=== PATIENT | male | born 1950 | race Two or more races ===

== ENCOUNTER 2017-07-02 14:55 | Inpatient (IN) | payer MEDICARE ==
[~2017-07-02] VITALS: Ht 182.9 cm; Wt 96.2 kg
--- NOTE | 2017-07-02 18:25 | NUR ---
MS RN NOTES PATIENT BROUGHT IN VIA GURNEY FROM [facility]. PATIENT IS A/O X4, AMBULATORY. MADE COMFORTABLE IN BED. IVC IN RIGHT AC G20 PATENT AND INTACT, FLUSHES WELL. VS TAKEN AND RECORDED, SATING 96% IN RA, NO SOB. PATIENT WILL BE ADMITTED FOR PNA, NOTIFIED DR. VELEZ. CALL LIGHT WITHIN REACH. WILL ENDORSE TO SLITTER CUT OFF OPERATOR RN FOR ROSEANN.
[2017-07-02 18:34] VITALS: BP 154/104
--- NOTE | 2017-07-02 18:42 | NUR ---
CALLED DR VELEZ TO VERIFY PT TELE STATUS. STATES OK TO KEEP ON MED SURG. AND ORDERED ATIVAN 2MG IV Q6H AGITATION AND WITHDRAWAL SYMPTOMS. ORDERS PLACED. NAVIN SUBSTATION INSPECTOR, NOTIFIED AND WILL CALL ADMITTING TO CHANGE STATUS TO MED SURGE.
[2017-07-02] MEDS ORDERED: IV NS 0.9% 1,000 ML IV PRN (18:46)
[2017-07-02] MEDS ORDERED: ZOLPIDEM TARTRATE 5 MG TABLET PO PRN (19:00)
[2017-07-02] MEDS ORDERED: MAGNESIUM HYDROXIDE 30 ML UDC PO PRN (19:00)
[2017-07-02] MEDS ORDERED: ENOXAPARIN SODIUM 40 MG/0.4 ML DISP.SYRIN SQ SCH (19:00)
[2017-07-02] MEDS ORDERED: LORAZEPAM 1 MG TABLET PO PRN (19:00)
[2017-07-02] MEDS ORDERED: MAG HYDROX/AL HYDROX/SIMETH 30 ML UDC PO PRN (19:00)
[2017-07-02] MEDS ORDERED: ONDANSETRON HCL/PF 4 MG/2 ML VIAL IVP PRN (19:00)
[2017-07-02] MEDS ORDERED: ACETAMINOPHEN 325 MG TABLET PO PRN (19:00)
[2017-07-02] MEDS ORDERED: Z GUARD REMEDY 2 OZ OINT TP PRN (19:00)
--- NOTE | 2017-07-02 19:30 | NUR ---
RN NOTE , RECEIVED THE PT IN BED AWAKE AND ALERT, ANXIOUS, REQUESTING PAIN MEDICATION AND ATIVAN, BREATHING EVENLY. NO SOB. NO COUGH. ABLE TO PROVIDE MEDICAL HX, NEEDS ATTENDED. CALL LIGHT WITHIN REACH .WILL CONT TO MONITOR AND WILL F/U W. 'S ORDERS.
[2017-07-02] MEDS ORDERED: ENOXAPARIN SODIUM 40 MG/0.4 ML DISP.SYRIN SQ ONE (19:40)
[2017-07-02] MEDS ORDERED: LORAZEPAM 1 MG TABLET ONE (19:41)
[2017-07-02] MEDS ORDERED: HYDROCODONE/APAP 5/325MG 1 EACH TABLET ONE (19:42)
[2017-07-02] MEDS: HYDROCODONE/APAP 5/325MG 1 EACH TABLET PO PRN (19:45)
--- NOTE | 2017-07-02 19:45 | NUR ---
NORCO GIVEN FOR C/O L UPPER ABD PAIN. WILL CONT TO MONITOR
[2017-07-02] MEDS ORDERED: LORAZEPAM INJ 2 MG/ML VIAL ONE (19:48)
[2017-07-02] MEDS: LORAZEPAM INJ 2 MG/ML VIAL IV PRN (19:50)
--- NOTE | 2017-07-02 19:50 | NUR ---
ATIVAN INJ GIVEN PER PT'S REQUEST FOR C/O ANXIETY. WILL CONT TO MONITOR ,
[2017-07-02 20:00] VITALS: BP 153/99
[2017-07-02 20:20] VITALS: BP 153/99
[2017-07-02 20:38] LABS: BASOPHILS % (AUTO) 0.4 % (0.0-2.0); EOSINOPHILS # (AUTO) 0.3 /CMM (0.0-0.7); EOSINOPHILS % (AUTO) 2.7 % (0.0-6.0); HEMATOCRIT 41 % (39-51); HEMOGLOBIN 13.9 g/dL (13.5-17.5); LYMPHOCYTES # (AUTO) 0.8 /CMM (0.8-4.8); LYMPHOCYTES % (AUTO) 8.3 % (20.0-44.0); MEAN CORPUSCULAR HEMOGLOBIN 30 PG (26.0-33.0); MEAN CORPUSCULAR HGB CONC 34 g/dl (31.0-36.0); MEAN CORPUSCULAR VOLUME 88 fL (80-96); MONOCYTES # (AUTO) 0.6 /CMM (0.1-1.30); MONOCYTES % (AUTO) 5.9 % (2.0-12.0); NEUTROPHILS # (AUTO) 8.1 /CMM (1.8-8.9); NEUTROPHILS % (AUTO) 82.7 % (43.0-81.0); PLATELET COUNT (AUTO) 250 /CMM (150-450); RDW COEFFICIENT OF VARIATION 14.3 (11.5-15.0); RED BLOOD CELL COUNT(AUTO) 4.63 MIL/uL (4.5-6.0); WHITE BLOOD COUNT (AUTO) 9.9 K/uL (4.3-11.0)
[2017-07-02 21:01] LABS: BILIRUBIN,DIRECT 0.2 mg/dL (0.0-0.2); BILIRUBIN,TOTAL 0.9 mg/dL (0.2-1.0); CALCIUM, SERUM 8.4 mg/dL (8.5-10.1); CREATININE 0.8 mg/dL (0.6-1.3); POTASSIUM 3.7 mmol/L (3.5-5.1)
[2017-07-02 21:02] LABS: ALBUMIN 2.7 g/dL (3.4-5.0); TOTAL PROTEIN, SERUM 6.6 g/dL (6.4-8.2)
--- NOTE | 2017-07-03 06:43 | NUR ---
PT IN BED SLEEPING, BREATHING EVENLY. NO SOB, NO COUGH, NO ACUTE EVENT DURING THE NIGHT. NEEDS ATTENDED .CALL LIGHT WITHIN REACH. WILL CONT TO MONITOR AND WILL ENDORSE TO AM SHIFT FOR ROSEANN.
--- NOTE | 2017-07-03 07:25 | NUR ---
MS RN OPENING NOTES RECEIVED PT FROM NIGHTSHIFT NURSE IN STABLE CONDITION. PT IS A/O X4. NO SOB OR SIGNS OF DISTRESS NOTED. BREATHING IS EVEN AND UNLABORED. PT IS ON RA AND SATING WELL. HE DENIES PAIN AT THIS TIME. IV NOTED TO BE PATENT AND INTACT. BED IN LOW LOCKED POSITION, SIDE RAILS UP X2, CALL LIGHT WITHIN REACH. WILL CONTINUE TO MONITOR
[2017-07-03 07:48] LABS: BASOPHILS % (AUTO) 0.5 % (0.0-2.0); EOSINOPHILS # (AUTO) 0.6 /CMM (0.0-0.7); EOSINOPHILS % (AUTO) 6.9 % (0.0-6.0); HEMATOCRIT 44 % (39-51); HEMOGLOBIN 14.9 g/dL (13.5-17.5); LYMPHOCYTES # (AUTO) 1.2 /CMM (0.8-4.8); LYMPHOCYTES % (AUTO) 14.1 % (20.0-44.0); MEAN CORPUSCULAR HEMOGLOBIN 30 PG (26.0-33.0); MEAN CORPUSCULAR HGB CONC 34 g/dl (31.0-36.0); MEAN CORPUSCULAR VOLUME 88 fL (80-96); MONOCYTES # (AUTO) 0.6 /CMM (0.1-1.30); MONOCYTES % (AUTO) 7.5 % (2.0-12.0); NEUTROPHILS # (AUTO) 6.1 /CMM (1.8-8.9); PLATELET COUNT (AUTO) 286 /CMM (150-450); RDW COEFFICIENT OF VARIATION 14.6 (11.5-15.0); RED BLOOD CELL COUNT(AUTO) 4.94 MIL/uL (4.5-6.0); WHITE BLOOD COUNT (AUTO) 8.6 K/uL (4.3-11.0)
[2017-07-03 08:00] VITALS: BP 156/90
[2017-07-03 08:25] LABS: CALCIUM, SERUM 8.8 mg/dL (8.5-10.1); CREATININE 0.8 mg/dL (0.6-1.3); MAGNESIUM 1.7 mg/dL (1.8-2.4); PHOSPHORUS 3.3 mg/dL (2.5-4.9)
[2017-07-03] MEDS ORDERED: CEFTRIAXONE 1 G in IV D5W 50 ML IV SCH (08:25)
[2017-07-03] MEDS ORDERED: LISI-603 PO (08:49)
[2017-07-03] MEDS ORDERED: THIAMINE HCL 100 MG TABLET PO SCH (09:00)
[2017-07-03] MEDS ORDERED: FOLIC ACID 1 MG TABLET PO SCH (09:00)
[2017-07-03] MEDS: HYDROCODONE/APAP 5/325MG 1 EACH TABLET PO PRN (09:16)
[2017-07-03] MEDS: LORAZEPAM INJ 2 MG/ML VIAL IV PRN (09:17)
[2017-07-03] MEDS: Magnesium 1GM/D5W 100ML PREMIX 100 ML IV SCH ×2 (11:12→12:12)
--- NOTE | 2017-07-03 12:26 | NUR ---
MS RN NOTES PT STATED THAT HE WANTED TO LEAVE AMA DESPITE HIS MEDICAL CONDITION. PER PT "I WOULD LIKE TO GO TO MY REHAB FACILITY AND I HAVE OTHER THINGS TO DO". IT WAS STRESSED TO THE PT THAT OUTDOOR STUDIES PROFESSOR CAN ARRANGE REHAB POST DISCHARGE AND THAT IT IS HIGHLY ADVISED TO GET TREATED AND MEDICALLY CLEARED BEFORE LEAVING. PT PERSISTED TO LEAVE WITHOUT EXIT CARE. MD AWARE AND ALSO STRESSED THAT PT NEEDED TO STAY TO BE TREATED. HE ALSO REUSED IV MG INFUSION. RISKS AND BENEFITS WERE DISCUSSED WITH PT. HE SIGNED AMA FORM AND WAS ESCORTED FROM FACILITY BY EXERCISE INSTRUCTOR. IV SUCCESSFULLY REMOVED. PT LEFT WITH ALL BELONGINGS
--- NOTE | 2017-07-03 14:09 | NUR ---
Social service consult requested by ANDREA Pineda for homelessness. Pt. is a 67 year old male who was admitted to [facility] for pneumonia. SW went to meet with pt. bedside, however SW was informed that pt. left AMA this AM.
--- NOTE | 2017-07-03 16:05 | NUR ---
INCIDENT REPORT COMPLETED: [id number].
== END 2017-07-03 12:30 | disposition left against medical advice (07) | DRG 195 ==
LOC: TELE2 18:07 → MEDSG2 18:42
PROVIDERS: ADMIT Family Medicine; ATTEND Family Medicine
DX: J15.9 Unspecified bacterial pneumonia (principal); F10.129 Alcohol abuse with intoxication, unspecified; F17.200 Nicotine dependence, unspecified, uncomplicated
CPT/HCPCS: 36415; 80048-TC; 80076-TC; 83735-TC; 84100-TC; 85025-TC; 87081-TC; J0696; J1650; J2060; J7030; J7060; Z7610

== ENCOUNTER 2017-07-03 18:43 | Inpatient (IN) | payer MEDICARE ==
[~2017-07-03] VITALS: Ht 182.9 cm; Wt 93.0 kg
[~2017-07-03 18:43] MED LIST: LISI-603 PO
[2017-07-03] MEDS ORDERED: LORAZEPAM INJ 2 MG/ML VIAL IV STA (20:07)
[2017-07-03] MEDS ORDERED: LORAZEPAM INJ 2 MG/ML VIAL ONE (20:18)
[2017-07-03 20:46] LABS: BASOPHILS # (AUTO) 0.2 /CMM (0.0-0.2); BASOPHILS % (AUTO) 1.8 % (0.0-2.0); EOSINOPHILS # (AUTO) 0.4 /CMM (0.0-0.7); EOSINOPHILS % (AUTO) 4.5 % (0.0-6.0); HEMATOCRIT 44 % (39-51); HEMOGLOBIN 14.5 g/dL (13.5-17.5); LYMPHOCYTES # (AUTO) 1.5 /CMM (0.8-4.8); LYMPHOCYTES % (AUTO) 15.4 % (20.0-44.0); MEAN CORPUSCULAR HEMOGLOBIN 29 PG (26.0-33.0); MEAN CORPUSCULAR HGB CONC 33 g/dl (31.0-36.0); MEAN CORPUSCULAR VOLUME 87 fL (80-96); MONOCYTES # (AUTO) 0.6 /CMM (0.1-1.30); MONOCYTES % (AUTO) 6.5 % (2.0-12.0); NEUTROPHILS % (AUTO) 71.8 % (43.0-81.0); PLATELET COUNT (AUTO) 193 /CMM (150-450); RDW COEFFICIENT OF VARIATION 13.3 (11.5-15.0); RED BLOOD CELL COUNT(AUTO) 5.06 MIL/uL (4.5-6.0); WHITE BLOOD COUNT (AUTO) 9.7 K/uL (4.3-11.0)
[2017-07-03 20:55] LABS: CALCIUM, SERUM 8.6 mg/dL (8.5-10.1); CARBON DIOXIDE 25 mmol/L (21-32); CHLORIDE 103 mmol/L (98-107); CREATININE 0.8 mg/dL (0.6-1.3); GLUCOSE 97 mg/dL (74-106); POTASSIUM 3.3 mmol/L (3.5-5.1); SODIUM SERUM 139 mmol/L (136-145); UREA NITROGEN, BLOOD 6 mg/dL (7-18)
[2017-07-03 21:06] LABS: ALANINE AMINOTRANSFERASE 13 U/L (12-78); ALBUMIN 2.8 g/dL (3.4-5.0); ALKALINE PHOSPHATASE 98 U/L (46-116); ASPARTATE AMINOTRANSFERASE 23 U/L (15-37); BILIRUBIN,DIRECT 0.1 mg/dL (0.0-0.2); BILIRUBIN,TOTAL 0.4 mg/dL (0.2-1.0); LIPASE 91 U/L (73-393); TOTAL PROTEIN, SERUM 6.9 g/dL (6.4-8.2)
[2017-07-03 21:08] LABS: TROPONIN I < 0.017 ng/mL (0.00-0.056)
[2017-07-03] MEDS ORDERED: MAG HYDROX/AL HYDROX/SIMETH 30 ML UDC PO PRN (21:30)
[2017-07-03] MEDS ORDERED: CEFTRIAXONE 1 G in IV D5W 50 ML IV SCH (21:30)
[2017-07-03] MEDS ORDERED: LORAZEPAM 1 MG TABLET PO PRN (21:30)
[2017-07-03] MEDS ORDERED: ENOXAPARIN SODIUM 40 MG/0.4 ML DISP.SYRIN SQ SCH (21:30)
[2017-07-03] MEDS ORDERED: Z GUARD REMEDY 2 OZ OINT TP PRN (21:30)
[2017-07-03] MEDS ORDERED: MAGNESIUM HYDROXIDE 30 ML UDC PO PRN (21:30)
[2017-07-03] MEDS ORDERED: ACETAMINOPHEN 325 MG TABLET PO PRN (21:30)
[2017-07-03] MEDS ORDERED: IV NS 0.9% 1,000 ML IV SCH (21:30)
--- NOTE | 2017-07-03 21:34 | NUR ---
205-2 IN 1 HOUR
[2017-07-03] MEDS ORDERED: IBUPROFEN 400 MG TABLET PO STA (21:36)
--- NOTE | 2017-07-03 22:00 | NUR ---
"AMA YESTERDAY AFTER DX OF PNA; BACK FOR SOB", NAD NOTED, RESP EVEN AND UNLABORED, WAITING FOR MD SIMMONS.
[2017-07-03] MEDS ORDERED: IBUPROFEN 400 MG TABLET ONE (22:11)
[2017-07-03] MEDS ORDERED: ACETAMINOPHEN 325 MG TABLET PO STA (22:14)
--- NOTE | 2017-07-03 23:43 | NUR ---
REPORT REC'D FROM GEORGE NINA FOR ROSEANN. PT WAS ASKED TO LIE BACK IN BED AND PLACED ON THE MONITOR AND CONTINUOUS PULSE OX. PT'S TENNIS SHOES ARE ON THE BACK OF THE BED AND SUITCASE IS BESIDE THE BED.
--- NOTE | 2017-07-03 23:54 | NUR ---
MS2/RN RECEIVE PATIENT FROM E.R. VIA WHEELCHAIR. PATIENT IS AWAKE, ALERT, ORIENTED, C/O PAIN IN CHEST WALL 02/02, WILL MEDICATED, MADE COMFORTABLE IN BED, TAUGHT THE USE OF CALL LIGHT AND PLACED AT BEDSIDE WITHIN REACH. WILL MONITOR.
[2017-07-04] MEDS ORDERED: HYDROCODONE/APAP 5/325MG 1 EACH TABLET ONE ×2 (00:18→05:08)
[2017-07-04] MEDS ORDERED: ENOXAPARIN SODIUM 40 MG/0.4 ML DISP.SYRIN SQ ONE (00:18)
[2017-07-04] MEDS: HYDROCODONE/APAP 5/325MG 1 EACH TABLET PO PRN ×5 (00:25→19:56)
--- NOTE | 2017-07-04 00:25 | NUR ---
MS2/RN MEDICATED WITH NORCO 5/325, ADMISSION DONE PER PROTOCOL, PATIENT WAS NOT COOPERATIVE ENOUGH, NOT ANSWERING SOME OF MY ADMISSION QUESTIONS, REFUSED SKIN ASSESSMENT. WILL CONTINUE TO MONITOR.
[2017-07-04 01:00] VITALS: BP 157/104
--- NOTE | 2017-07-04 02:00 | NUR ---
MS2/RN PATIENT IS SLEEPING AT THIS TIME, EASILY AROUSABLE, APPEAR COMFORTABLE, NO DISTRESS NOTED, CALL LIGHT IN REACH. WILL CONTINUE TO MONITOR.
[2017-07-04] MEDS ORDERED: CEFTRIAXONE 1 G VIAL ONE (02:41)
--- NOTE | 2017-07-04 03:31 | NUR ---
MS2/RN ROCEPHIN WAS GIVEN LATE FOR IT WAS NOT AVAILABLE IN [facility] AND IN HUB LEAD'S OFFICE. MEDICATION WAS TAKEN FROM EMILIA.
--- NOTE | 2017-07-04 07:01 | NUR ---
MS2/RN PATIENT IS SLEEPING AT THIS TIME, AROUSABLE, NO DISTRESS NOTED, ALL NEEDS ATTENDED AT THIS TIME. WILL CONTINUE TO MONITOR.
[2017-07-04 08:00] VITALS: BP 161/92
--- NOTE | 2017-07-04 08:10 | NUR ---
MS RN: INITIAL NOTE RECEIVED PT A/OX3. ON MS. BRP. NO DISTRESS NOTED. NO SOB NOTED. NO PAIN NOTED. AMBULATORY. ON REGULAR DIET. REFUSED SKIN ASSESSMENT. NS AT 75ML/HR RUNNING ON R HAND #20. SITE CLEAR AND PATENT. RESTING COMFORTABLY IN BED. CALL LIGHT WITHIN REACH.
[2017-07-04 08:52] LABS: BASOPHILS % (AUTO) 0.4 % (0.0-2.0); EOSINOPHILS # (AUTO) 0.5 /CMM (0.0-0.7); EOSINOPHILS % (AUTO) 7.6 % (0.0-6.0); HEMATOCRIT 42 % (39-51); HEMOGLOBIN 14.3 g/dL (13.5-17.5); LYMPHOCYTES # (AUTO) 1.1 /CMM (0.8-4.8); LYMPHOCYTES % (AUTO) 18.3 % (20.0-44.0); MEAN CORPUSCULAR HEMOGLOBIN 30 PG (26.0-33.0); MEAN CORPUSCULAR HGB CONC 34 g/dl (31.0-36.0); MEAN CORPUSCULAR VOLUME 89 fL (80-96); MONOCYTES # (AUTO) 0.5 /CMM (0.1-1.30); MONOCYTES % (AUTO) 8.1 % (2.0-12.0); NEUTROPHILS # (AUTO) 4.1 /CMM (1.8-8.9); NEUTROPHILS % (AUTO) 65.6 % (43.0-81.0); PLATELET COUNT (AUTO) 251 /CMM (150-450); RDW COEFFICIENT OF VARIATION 14.6 (11.5-15.0); RED BLOOD CELL COUNT(AUTO) 4.74 MIL/uL (4.5-6.0); WHITE BLOOD COUNT (AUTO) 6.3 K/uL (4.3-11.0)
[2017-07-04 08:59] LABS: CALCIUM, SERUM 8.4 mg/dL (8.5-10.1); CREATININE 0.7 mg/dL (0.6-1.3); MAGNESIUM 1.7 mg/dL (1.8-2.4); POTASSIUM 3.6 mmol/L (3.5-5.1)
[2017-07-04] MEDS: IV NS 0.9% 1,000 ML IV PRN (09:16)
[2017-07-04] MEDS: LISINOPRIL (20MG) 20 MG TABLET PO SCH (09:17)
[2017-07-04] MEDS: FOLIC ACID 1 MG TABLET PO SCH (09:17)
[2017-07-04] MEDS: THIAMINE HCL 100 MG TABLET PO SCH (09:17)
[2017-07-04] MEDS: MULTIVITAMINS,THERAGRAN 1 UDTAB TABLET PO SCH (09:17)
[2017-07-04] MEDS: ONDANSETRON HCL/PF 4 MG/2 ML VIAL IVP PRN (09:22)
--- NOTE | 2017-07-04 13:56 | NUR ---
Social service consult requested by Dr. Samuels for homelessness. Pt. is a 67 year old male who was admitted to [facility] for pneumonia. Pt. was hospitalized yesterday, however pt. left AMA. SW met with pt. bedside. Pt. is alert and oriented x 3. SW inquired with pt. as to why he left AMA yesterday. Pt. stated he had some things to take care of. Pt. decided to come back to [facility] when he started to not feel well again. Pt. was residing in a sober living until a week ago. Pt. left because the residents at the sober living had mental health issues. Pt. would like to go to a nursing home facility or assisted living upon discharge. SW informed pt. she will inform embedded case manager Maria Antonia regarding SNF placement. Pt. receives approximately $1027/ month in SSDI. Pt. denies using drugs and alcohol. Pt. smokes less than 1/2 a pack of cigarettes daily. Pt. does not use marijuana. Pt. denies suicidal/homicidal ideations and visual/ auditory hallucinations at this time. No other social service needs are required at this time. SW is available if needed. assistant account manager Maria Antonia was informed regarding pt. wanting nursing home facility upon discharge.
[2017-07-04 15:57] VITALS: BP 142/91
--- NOTE | 2017-07-04 18:49 | NUR ---
MS RN: CLOSING NOTE PT A/OX3. TOOK ALL MEDICATIONS ON TIME. NO ADVERSE REACTIONS NOTED. NO SOB NOTED. PAIN CONTROLLED WITH PAIN MEDICATIONS . NO DISTRESS NOTED. BRP. REFUSED BODY ASSESSMENT. ON REGULAR DIET. R HAND #20 RUNNING NS AT 75ML/HR. SITE CLEAR AND PATENT. RESTING COMFORTABLY IN BED. CALL LIGHT WITHIN REACH.
--- NOTE | 2017-07-04 20:00 | NUR ---
MS2/RN RECEIVE PATIENT AWAKE, ALERT, ORIENTED, WITH C/O PAIN LEFT CHEST WALL, 01/02, MEDICATED WITH NORCO 5/325 PO ORDERED, NO DISTRESS NOTED, IVF INFUSING, CALL LIGHT IN REACH., WILL MONITOR.
[2017-07-04 20:39] VITALS: BP 156/92
[2017-07-04] MEDS: ZOLPIDEM TARTRATE 5 MG TABLET PO PRN (22:15)
[2017-07-04] MEDS: MAGNESIUM OXIDE 400 MG TABLET PO SCH (22:15)
[2017-07-04] MEDS: ENOXAPARIN SODIUM 40 MG/0.4 ML DISP.SYRIN SQ SCH (22:16)
[2017-07-05] MEDS: HYDROCODONE/APAP 5/325MG 1 EACH TABLET PO PRN ×5 (01:25→20:01)
[2017-07-05] MEDS: CEFTRIAXONE 1 G in IV D5W 50 ML IV SCH (02:55)
[2017-07-05] MEDS: IV NS 0.9% 1,000 ML IV PRN ×2 (05:26→16:24)
--- NOTE | 2017-07-05 06:10 | NUR ---
MS2/RN C/O BURNING IN IV SITE. REMOVED IV AND INSERTED NEW IV LINE AT LEFT WRIST G 22. PATIENT AWAKE, ALERT, ORIENTED, ALL NEEDS ATTENDED AT THIS TIME. WILL CONTINUE TO MONITOR.
[2017-07-05 06:27] LABS: BASOPHILS % (AUTO) 0.5 % (0.0-2.0); EOSINOPHILS # (AUTO) 0.7 /CMM (0.0-0.7); EOSINOPHILS % (AUTO) 9.7 % (0.0-6.0); HEMATOCRIT 43 % (39-51); HEMOGLOBIN 14.5 g/dL (13.5-17.5); LYMPHOCYTES # (AUTO) 1.4 /CMM (0.8-4.8); LYMPHOCYTES % (AUTO) 20.1 % (20.0-44.0); MEAN CORPUSCULAR HEMOGLOBIN 30 PG (26.0-33.0); MEAN CORPUSCULAR HGB CONC 34 g/dl (31.0-36.0); MEAN CORPUSCULAR VOLUME 89 fL (80-96); MONOCYTES # (AUTO) 0.5 /CMM (0.1-1.30); MONOCYTES % (AUTO) 7.6 % (2.0-12.0); NEUTROPHILS # (AUTO) 4.5 /CMM (1.8-8.9); NEUTROPHILS % (AUTO) 62.1 % (43.0-81.0); PLATELET COUNT (AUTO) 266 /CMM (150-450); RDW COEFFICIENT OF VARIATION 14.5 (11.5-15.0); RED BLOOD CELL COUNT(AUTO) 4.84 MIL/uL (4.5-6.0); WHITE BLOOD COUNT (AUTO) 7.2 K/uL (4.3-11.0)
[2017-07-05 07:16] LABS: CALCIUM, SERUM 8.8 mg/dL (8.5-10.1); CREATININE 0.8 mg/dL (0.6-1.3); MAGNESIUM 1.7 mg/dL (1.8-2.4); PHOSPHORUS 4.2 mg/dL (2.5-4.9); POTASSIUM 3.7 mmol/L (3.5-5.1)
--- NOTE | 2017-07-05 07:40 | NUR ---
MS RN: INITIAL NOTE RECEIVED PT A/OX4. MS. BRP. AMBULATORY. SKIN INTACT. NO DISTRESS NOTED. NO SOB NOTED. NO PAIN NOTED. ON REGULAR DIET. L WRIST 322 RUNNING NS AT 75ML/HR. SITE CLEAR AND PATENT. RESTING COMFORTABLY IN BED. CALL LIGHT WITHIN REACH.
[2017-07-05] MEDS: LISINOPRIL (20MG) 20 MG TABLET PO SCH (08:13)
[2017-07-05] MEDS: MULTIVITAMINS,THERAGRAN 1 UDTAB TABLET PO SCH (08:13)
[2017-07-05] MEDS: THIAMINE HCL 100 MG TABLET PO SCH (08:13)
[2017-07-05] MEDS: FOLIC ACID 1 MG TABLET PO SCH (08:13)
[2017-07-05 09:56] VITALS: BP 158/99
[2017-07-05] MEDS ORDERED: MAGNESIUM OXIDE 400 MG TABLET PO ONE (13:00)
[2017-07-05 15:48] VITALS: BP 143/98
[2017-07-05 16:11] VITALS: BP 143/98
[2017-07-05] MEDS: ONDANSETRON HCL/PF 4 MG/2 ML VIAL IVP PRN (16:19)
--- NOTE | 2017-07-05 18:43 | NUR ---
MS RN: CLOSING NOTE PT A/OX4. TOOK ALL MEDICATIONS ON TIME. NO ADVERSE REACTIONS NOTED. PAIN CONTROLLED WITH PAIN MEDICATIONS. NO DISTRESS NOTED. AMBULATORY WITH OUT ASSIST. ON REGULAR DIET. L WRIST RUNNING NS AT 100 ML HR. SITE CLEAR AND PATENT. NO N/V NOTED. RESTING COMFORTABLY IN BED. CALL LIGHT WITHIN REACH.
[2017-07-05 20:00] VITALS: BP 158/82
--- NOTE | 2017-07-05 20:04 | NUR ---
MS2/RN C/O PAIN, CHEST WALL AND HEADACHE, MEDICATED WITH NORCO 1 TABLET ORDERED. WILL MONITOR.
[2017-07-05] MEDS: MAGNESIUM OXIDE 400 MG TABLET PO SCH (21:16)
[2017-07-05] MEDS: ZOLPIDEM TARTRATE 5 MG TABLET PO PRN (21:17)
[2017-07-05] MEDS: ENOXAPARIN SODIUM 40 MG/0.4 ML DISP.SYRIN SQ SCH (21:20)
[2017-07-06] MEDS: IV NS 0.9% 1,000 ML IV PRN (03:09)
[2017-07-06] MEDS: CEFTRIAXONE 1 G in IV D5W 50 ML IV SCH (03:09)
[2017-07-06] MEDS: HYDROCODONE/APAP 5/325MG 1 EACH TABLET PO PRN ×3 (03:16→14:24)
--- NOTE | 2017-07-06 04:35 | NUR ---
MS2/RN IV LEAKING. REMOVED AND GEORGE JADE, STARTED A NEW LINE AT LEFT F/A.
--- NOTE | 2017-07-06 07:39 | NUR ---
MS2/RN PATIENT AWAKE AT THIS TIME, COMFORTABLE, ALL NEEDS ATTENDED AT THIS TIME. ENDORSED TO NEXT RN.
[2017-07-06 08:00] VITALS: BP 151/91
--- NOTE | 2017-07-06 08:03 | NUR ---
MS/RN OPENING NOTE PATIENT IN BED IN STABLE CONDITION. A/O X 4. NO SIGNS OF ACUTE DISTRESS. NO COMPLAIN OF PAIN OR DISCOMFORT. ALL NEEDS ATTENDED TO. CALL LIGHT WITHIN REACH. WILL CONTINUE TO MONITOR TO ENSURE SAFETY.
[2017-07-06 08:08] LABS: CALCIUM, SERUM 8.7 mg/dL (8.5-10.1); CREATININE 0.8 mg/dL (0.6-1.3); MAGNESIUM 1.9 mg/dL (1.8-2.4); POTASSIUM 4.1 mmol/L (3.5-5.1)
[2017-07-06] MEDS: MULTIVITAMINS,THERAGRAN 1 UDTAB TABLET PO SCH (09:08)
[2017-07-06] MEDS: THIAMINE HCL 100 MG TABLET PO SCH (09:08)
[2017-07-06] MEDS: FOLIC ACID 1 MG TABLET PO SCH (09:08)
[2017-07-06] MEDS: LISINOPRIL (20MG) 20 MG TABLET PO SCH (09:08)
[2017-07-06] MEDS ORDERED: ENOX40DI SQ (11:36)
[2017-07-06] MEDS ORDERED: THIA100T13 PO (11:36)
[2017-07-06] MEDS ORDERED: MAGN400T26 PO (11:36)
[2017-07-06] MEDS ORDERED: LEVO750T21 PO (11:36)
[2017-07-06] MEDS ORDERED: MULT-24 PO (11:36)
[2017-07-06] MEDS ORDERED: FOLI1TAB16 PO (11:36)
[2017-07-06 16:00] VITALS: BP 147/90
--- NOTE | 2017-07-06 18:23 | NUR ---
MS/INTELLIGENCE INTERN PATIENT DISCHARGE IN STABLE CONDITION. A/O X 4. NO SIGNS OF ACUTE DISTRESS. NO COMPLAIN OF PAIN OR DISCOMFORT. DISCHARGE INSTRUCTIONS AND EDUCATION PROVIDED, REINFORCEMENT NEEDED. REPORT GIVEN TO BLAINE VAZQUEZ FROM [facility]. NAME BAND AND IV LINE REMOVED. ALL NEEDS ATTENDED TO. LEFT IN STABLE CONDITIO VIA GURNEY ACCOMPANIED BY [employer].
== END 2017-07-06 18:24 | DRG 896 ==
LOC: ER 18:47 → MEDSG2 22:12
PROVIDERS: ADMIT Internal Medicine; ATTEND Internal Medicine
DX: F10.129 Alcohol abuse with intoxication, unspecified (principal); J15.9 Unspecified bacterial pneumonia; Y90.5 Blood alcohol level of 100-119 mg/100 ml; I10 Essential (primary) hypertension; F17.210 Nicotine dependence, cigarettes, uncomplicated; Z59.0 Homelessness
CPT/HCPCS: 36415; 71045-TC; 80048-TC; 80076-TC; 83690-TC; 83735-TC; 84100-TC; 84484-TC; 85025-TC; 87081-TC; A4606; A6402; G0480; J0696; J1650; J2060; J2405; J7030; J7060; Z7610